=== PATIENT | female | born 1935 | race Caucasian/White ===

== ENCOUNTER 2019-04-26 12:32 | Emergency (ER) | payer OTHER ==
[2019-04-26 12:50] VITALS: BMI 34.7
--- NOTE | 2019-04-26 14:39 | PDOC ---
History of Present Illness - General Chief Complaint: Weakness Stated Complaint: FLU Time Seen by Provider: 04/26/19 14:35 History Source: Patient Exam Limitations: No Limitations - History of Present Illness Initial Comments: 04/26/19 14:35 PCP: Not on staff HPI: 83yo F pmh DM, arthritis, HTN, presenting with weakness for 1 day. All household members have suffered from flu-like symptoms. Daughter with symptoms on Thursday, Patient with symptoms starting on Thursday. Symptoms include fever, chills, weakness, difficulty remembering things per daughter. Patient has not had vomiting, diarrhea. Tolerating PO food, liquids, and medications at home. Daughter has been giving Theraflu, last at 9AM this morning. Does not remember max temperature. All: NKDA Meds: Per chart PMH: Per chart PSH: Per chart Past History - Past Medical History Allergies/Adverse Reactions: Allergies Allergy/AdvReac Type Severity Reaction Status Date / Time No Known Allergies Allergy Verified 04/26/19 12:50 Home Medications: Ambulatory Orders Atorvastatin Calcium 20 mg PO DAILY 04/26/19 Azithromycin [Zithromax -] 250 mg PO UTDICT #6 tab 04/26/19 Calcium Carbonate/Vitamin D3 [Calcium 600-Vit D3 200 Tablet] 1 tab PO BID Losartan Potassium 100 mg PO DAILY 04/26/19 Metoprolol Succinate 50 mg PO DAILY 04/26/19 Oseltamivir Phosphate [Tamiflu] 75 mg PO BID 7 Days #13 capsule 04/26/19 COPD: No Diabetes: Yes (no meds) HTN: Yes Other medical history: arthritis - Psycho Social/Smoking Cessation Hx Smoking History: Never smoked Have you smoked in the past 12 months: No Information on smoking cessation initiated: No Hx Alcohol Use: No Drug/Substance Use Hx: No Review of Systems - Review of Systems Able to Perform ROS?: Yes Is the patient limited Korean proficient: Yes Constitutional: Yes: Chills, Fever, Weakness. No: Diaphoresis, Unexplained wgt Loss HEENTM: No: Nose Congestion, Throat Pain Respiratory: Yes: Cough. No: Orthopnea, Shortness of Breath, Productive cough ABD/GI: No: Constipated, Diarrhea, Nausea, Poor Appetite, Poor Fluid Intake, Vomiting : No: Burning, Dysuria, Discharge, Frequency Musculoskeletal: No: Muscle Pain, Muscle Weakness Integumentary: No: Pruritus, Rash, Sweating Neurological: No: Headache, Numbness, Tingling, Weakness Psychiatric: No: Stressors, Change in Appetite Endocrine: No: Increased Thirst, Increased Urine Hematologic/Lymphatic: No: Anemia, Blood Clots, Easy Bleeding All Other Systems: Reviewed and Negative *Physical Exam - Vital Signs Last Vital Signs Temp Pulse Resp BP Pulse Ox 101.1 F H 88 18 138/74 94 L 04/26/19 12:48 04/26/19 12:48 04/26/19 12:48 04/26/19 12:48 04/26/19 12:48 - Physical Exam 04/26/19 15:08 Vitals reviewed, Febrile, otherwise VSS GEN: Elderly, appears stated age, NAD, tired-appearing. AAOx3. HEENT: NCAT, EOMI, PERRL. Sclera anicteric, noninjected. No facial asymmetry. Moist mucous membranes. Normal voice. Trachea midline. CV: RRR, S1/S2, no murmurs / rubs / gallops appreciated. LUNG: +Diffuse crackles, normal work of breathing. No wheezes. No cough. Speaking full sentences. GI: Soft, NTND, +BS, no guarding, no rebound. No masses. Neg CVAT b/l. EXTREMITIES: 2+ distal pulses. No LE edema. No obvious deformities of all extremities. SKIN: Warm, dry, no rashes appreciated, non-jaundiced. PSYCH: Normal mood and affect. Cooperative and appropriate. NEURO: CN grossly intact. Confused. Difficult with distant recall. Normal strength and sensation grossly. ED Treatment Course - LABORATORY CBC & Chemistry Diagram: 04/26/19 14:08 04/26/19 14:08 Medical Decision Making - Medical Decision Making 04/26/19 15:04 83yo F pmh DM, arthritis, HTN, presenting with weakness for 1 day in the setting of suspected viral infection. History notable for multiple sick contacts in the house, fevers, cough, weakness. Exam notable for fever. Concerning for influenza, other URI, PNA, occult UTI, electrolyte derangements. - CBC, CMP, Cardiac - UA, UCx - Influenza - CXR, EKG - Ofirmev 04/26/19 15:34 - Influenza A Positive - Tamiflu ordered - CXR with widened mediastium vs cayla-hilar congestive markings / density in R lower lung field on my read. Official pending 04/26/19 15:52 - Hypoxic to 93/94% - Recall improving s/p Tylenol - 1L IVF bolus hanging 04/26/19 17:28 - Patient feeling much better s/p ofirmev, IVF - Repeat CXR pending 04/26/19 18:05 - Azithromax - Tamiflu Dispo: Home Discharge - Discharge Information Problems reviewed: Yes Clinical Impression/Diagnosis: Influenza A Condition: Guarded Disposition: HOME - Admission No - Additional Discharge Information Prescriptions: Azithromycin [Zithromax -] 250 mg PO UTDICT #6 tab Oseltamivir Phosphate [Tamiflu] 75 mg PO BID 7 Days #13 capsule - Follow up/Referral Referrals: ON STAFF,NOT [Primary Care Provider] - - Patient Discharge Instructions Patient Printed Discharge Instructions: DI for Influenza -- Adult Additional Instructions: Prescriptions for Tamiflu and antibiotics have been sent to your pharmacy. Please pick these up and take them as directed. Follow up with your primary care doctor in the next 3-5 days if symptoms persist. Return to the ED for any new or concerning symptoms. - Post Discharge Activity
[2019-04-26] MEDS ORDERED: ACETAMINOPHEN 1000 MG/100 ML VIAL (NON FORMULARY) IVPB ONE (14:59)
[2019-04-26] MEDS ORDERED: ACETAMINOPHEN INJECTION 100 ML IVPB ONE (15:15)
[2019-04-26 15:20] LABS: EOS % 0.7 % (0-4.5); HEMATOCRIT 34.6 % (32.4-45.2); HEMOGLOBIN 11.4 GM/dL (10.7-15.3); LYMPH % 8.8 % (8-40); MCH 30.9 pg (25.7-33.7); MCHC 32.9 g/dl (32.0-36.0); MEAN CELL VOLUME 93.9 fl (80-96); MEAN PLT VOLUME 11.7 fl (7.5-11.1); NEUT % 73.5 % (42.8-82.8); PLATELET COUNT 175 K/MM3 (134-434); RBC 3.69 M/mm3 (3.60-5.2); RDW 14.1 % (11.6-15.6); WHITE BLOOD COUNT 4.6 K/mm3 (4.0-10.0)
[2019-04-26] MEDS ORDERED: OSELTAMIVIR PHOSPHATE 75 MG CAPSULE PO ONE (15:35)
[2019-04-26] MEDS ORDERED: SODIUM CHLORIDE 0.9% 500 ML INFUS.BAG IV ONE ×2 (15:41→15:48)
[2019-04-26 16:03] LABS: ALBUMIN 3.2 g/dl (3.4-5.0); BILIRUBIN,TOTAL 0.3 mg/dL (0.2-1); BLOOD UREA NITROGEN 21.4 mg/dL (7-18); CALCIUM 9.2 mg/dL (8.5-10.1); CREATININE 1.1 mg/dL (0.55-1.3); POTASSIUM 5.2 mmol/L (3.5-5.1); TOT PROT 7.5 g/dl (6.4-8.2)
--- NOTE | 2019-04-26 16:04 | PDOC ---
Attending Attestation - Resident Resident Name: Sawyer Mecnhaca - ED Attending Attestation I have performed the following: I have examined & evaluated the patient, The case was reviewed & discussed with the resident, I agree w/resident's findings & plan, Exceptions are as noted - HPI HPI: 04/26/19 16:04 [id number] hx of dm, htn, arhthitis, presents with complaint of cough/weakness. Per family, the patient has been coughing for approximately 1 day, associated with fever and generalized weakness. Other family members also have had influenza at home. History is limited from the patient and primarily provded by daughter. denies any cp, abd pain, back sarah beth, diarrhea, sob/dunn. - Physicial Exam PE: 04/26/19 17:37 exam: general: no acute distress, Card: rrr, no mrg pulm: scant rales at R base, no actue respiratory distress, no accessory muscle use abd: soft ontender neuro: moving all 4 ext spontaneously and symmetrically, normal speech, alert - Medical Decision Making 04/26/19 16:52 pt note to have ome rales at the R base portable cxr non dx - will obtian formal cxr to screen for pna pt also noted hypoxic to 94, but in no distress will give tamiflu if pt persistently hypoxic will admit for further management - signed out to evening team to fu and reassess & dispo
[2019-04-26] MEDS ORDERED: OSELTAMIVIR PHOSPHATE 75 MG CAPSULE ONE (16:20)
[2019-04-26 17:08] LABS: URINE APPEARANCE CLEAR; URINE BILIRUBIN NEGATIVE (NEGATIVE); URINE COLOR YELLOW; URINE GLUCOSE (UA) NEGATIVE (NEGATIVE); URINE KETONE NEGATIVE (NEGATIVE); URINE LEUK ESTERASE NEGATIVE (NEGATIVE); URINE NITRITE NEGATIVE (NEGATIVE); URINE PROTEIN NEGATIVE (NEGATIVE); URINE UROBILINOGEN 0.2 mg/dL (0.2-1.0)
[2019-04-26 18:21] VITALS: BP 142/70; PULSE 74; TEMP 98.9
--- NOTE | 2019-04-27 11:39 | EKG ---
Test Reason : Blood Pressure : / mmHG Vent. Rate : 078 BPM Atrial Rate : 078 BPM P-R Int : 154 ms QRS Dur : 068 ms QT Int : 358 ms P-R-T Axes : 039 -15 022 degrees QTc Int : 408 ms NORMAL SINUS RHYTHM SEPTAL INFARCT , AGE UNDETERMINED ABNORMAL ECG NO PREVIOUS ECGS AVAILABLE Confirmed by Danie Song MD ([id number]) on 04/27/2019 11:38:53 AM Referred By: Confirmed By:Danie Song MD
== END 2019-04-26 19:30 | disposition home or self-care (01) ==
LOC: JER 12:32
PROC: 3E033NZ Introduction of Analgesics, Hypnotics, Sedatives into Peripheral Vein, Percutaneous Approach (ICD-10-PCS; principal; 2019-04-26)
DX: J09.X2 Influenza due to identified novel influenza A virus with other respiratory manifestations (principal); I10 Essential (primary) hypertension; E11.9 Type 2 diabetes mellitus without complications; M12.9 Arthropathy, unspecified
CPT/HCPCS: 36415; 71045-TC-FY; 71046-TC-FY; 80053; 81003; 82550; 84484; 85025; 87086; 87804; 93005; 93010; 96374; 99285-25; J0131